=== PATIENT | female | born 1960 | race Caucasian/White ===

== ENCOUNTER 2025-01-09 22:21 | Emergency (ER) | payer BC, SELFPAY ==
[2025-01-09 22:26] VITALS: BP 132/80; PULSE 93; RESP 20; TEMP 36.6; O2SAT 95
[2025-01-09 22:38] VITALS: BP 147/77; PULSE 92; RESP 14; O2SAT 96; BMI 25.5
--- NOTE | 2025-01-09 22:41 | PD.EDSYNC ---
ED Syncope RME/HPI General Chief Complaint: Neuro Symptoms/Deficit Stated Complaint: NEAR SYNCOPE,RECTAL BLEED Time Seen by Provider: 01/09/25 22:41 Arrival date/time: 01/09/25 22:21 RME / HPI RME / HPI narrative: This section includes all my notes and documentations, including HPI, PE, and ED course. Stuart Adrian MD HPI: 64yo female with a history of DM, lupus, fibromyalgia BIBA from home presents to the ED for multiple concerns. Patient states she was using the restroom tonight and felt like she was going to pass out.possibly due to having 4 episodes of bright red blood in the toilet. Patient states she's been dealing with hemorrhoids and constipation for the last few weeks.took Dulcolax yesterday. Per EMS, blood sugar en route was 512 (patient has not taken her meds today). Patient denies any abdominal pain, N/V, black stools. No other complaints reported. ROS: All negative except as documented in HPI. Physical Exam: General:? Alert and oriented.? No acute distress.?? Eyes:? Conjunctivae and lids clear.? EOMI.? PERRL. ENT:? No nasal congestion.? Neck:? Supple.? No carotid bruit.? No JVD.?? Heart:? RRR.? Lungs:? No respiratory distress.? Good air movement.? No rhonchi, wheezing, rales.?? Abdomen:? Soft and nontender.? Normal bowel sounds.? No distension.? No rebound or guarding.?? Back:? No CVA tenderness.?? Legs:? No clubbing, cyanosis, edema.? Skin:? Warm and dry.?? Neuro:? Alert and oriented X 3.? Cranial Nerves II-XII grossly intact.? No peripheral motor deficits. Rectal: External hemorrhoids noted, nonthrombosed. Large amount of bright red blood noted. I reviewed EMS notes. I reviewed all diagnostic test results. My interpretation of the EKG is NSR with nonspecific ST-T changes. My interpretation of the chest x-ray is NAD. My review of the CT head report is unremarkable. My review of the CT chest abdomen pelvis report is: - Thickening of the anorectal wall, inflammatory versus neoplastic. - Fecal loading throughout the colon. - Mild bilateral lung consolidations. Blood tests remarkable for WBC 12.4, Glucose 586, A1C >14.0. At this point, diagnoses include pneumonia and severe constipation. Treatment here included NS, Insulin, Zofran, and Azithromycin. Significant improvement noted. Recommended outpatient management. Based on my best medical judgment, made decision no further evaluation or treatment indicated at this time. Patient understands and agrees to the discharge instructions customized and printed, see below. Discharge instructions from Dr. Adrian: --After extensive evaluation, there is no life-threatening condition. Such as stroke or brain tumor or heart attack. --And your red blood cell count is normal, meaning we didn't lose too much blood. Transfusion is definitely not indicated. --But you have pneumonia and severe constipation which ruptured tiny blood vessels which caused the rectal bleeding. --No physical exertion for 3 days to help rest the lungs. ?No smoking or exposure to smoking or pets or dust or cold or humidity. --Zithromax to kill the germs causing the pneumonia. --Prednisone to help decrease the swelling in the airways. --Albuterol 2 puffs every 4-6 hours as needed for cough or shortness of breath. ?Take Senokot S (not plain Senokot, OTC so prescription not needed), four pills, at bedtime as needed. And milk of magnesia as prescribed. May take a few days but this will help clear out your bowels. ?To help current constipation and prevent future constipation, increase oral fluid because dehydration cause severe constipation. Maintain clear urine. If dark or yellow, increase oral fluid. ?And every day, increase fresh fruits and fresh vegetables and physical exercise. ?See a private doctor on 01/12/2025 for recheck and further care. Ask to review all test results and official radiology reports, to make sure you receive all necessary follow-ups and monitoring. To make sure there is no serious underlying abdominal condition, ask to help you get more care not available here in the ER. Such as EGD or scoping of your stomach, colonoscopy or scoping the colon, and a referral to see a director of [facility]. To make sure there is no serious underlying heart condition, ask to help you get more tests for your heart that cannot be done here in the ER. Such as Holter Monitor (cardiac monitoring at home from a day to even a month), heart stress test (on treadmill or with medication), echocardiogram (imaging of your heart structures), heart catherization (checking for blockages in your heart arteries), and a referral to see a [employer] Person. ?Seek immediate medical care with worsening or with any concerns. Staurt Adrian MD Related Data Home Medications ?Medication ?Instructions ?Recorded ?Confirmed Fluticasone/Salmeterol DISKUS * 1 puff inhalation BID #0 puffs 10/17/14 01/12/19 (ADVAIR DISKUS 250/50 *) folic acid 1 mg tablet 1 mg PO QDAY #0 tabs 10/17/14 01/12/19 guaifenesin 600 mg tablet, 600 mg PO Q12HR ##0 10/17/14 01/12/19 extended release 12 hr (Mucinex) hydroxychloroquine 200 mg tablet 400 mg PO QDAY #0 tabs 10/17/14 01/12/19 (Plaquenil) insulin detemir U-100 100 unit/mL 60 unit subcut BID #0 vials 10/17/14 01/12/19 subcutaneous solution (Levemir U-100 Insulin) insulin lispro 100 unit/mL 40 unit subcut TID #0 vials 10/17/14 01/12/19 subcutaneous solution (Humalog U-100 Insulin) lisinopril 20 mg tablet 20 mg PO QDAY #0 tabs 10/17/14 01/12/19 methotrexate sodium 5 mg tablet 12.5 mg PO Q7D #0 tabs 10/17/14 01/12/19 (Trexall) omeprazole 20 mg capsule,delayed 20 mg PO QDAY ##0 10/17/14 01/12/19 release (Prilosec) sertraline 100 mg tablet (Zoloft) 100 mg PO QDAY #0 tabs 10/17/14 01/12/19 nebivolol 5 mg tablet (Bystolic) 5 mg PO QDAY High Blood Pressure 05/22/15 01/12/19 #0 tabs dapagliflozin propanediol 10 mg 10 mg PO QDAY #0 tabs 10/01/16 01/12/19 tablet (Farxiga) montelukast 10 mg tablet 10 mg PO HS #0 tabs 04/01/17 01/12/19 (Singulair) Previous Rx's ?Medication ?Instructions ?Recorded albuterol sulfate 90 mcg/actuation 2 puff inhalation Q6H PRN 01/10/25 aerosol inhaler shortness of breath or wheezing #8.5 grams azithromycin 500 mg tablet 500 mg PO QDAY 3 days #3 tabs 01/10/25 (Zithromax TRI-ASHLEY) magnesium hydroxide 2,400 mg/10 mL 30 ml PO QDAY PRN constipation #60 01/10/25 oral suspension (Milk Of Magnesia mL Concentrated) prednisone 50 mg tablet 50 mg PO QDAY #3 tabs 01/10/25 sennosides 8.6 mg-docusate sodium 4 tab-cap (4 x 8.6-50 mg) PO QDAY 01/10/25 50 mg tablet (Senokot-S) PRN constipation #20 tabs Allergies Allergy/AdvReac Type Severity Reaction Status Date / Time exenatide Allergy Severe Nausea/Vomi Verified 01/12/19 13:14 tiing Penicillins Allergy Severe SOB Verified 01/12/19 13:14 meperidine HCl Allergy Intermediate SWELLING Verified 01/12/19 13:14 AND RASH metformin Allergy Intermediate Nausea/Vomi Verified 01/12/19 13:14 tiing Review of Systems Review of Systems Systems Reviewed: All systems reviewed, normal except as documented Past Medical History Past Medical History CARDIAC: Negative Congestive Heart Failure RESPIRATORY: Negative Chronic Obstructive Pulmonary Disease (COPD) GENITOURINARY: Negative Renal Disease ENDOCRINE: Positive Diabetes Mellitus Type 2; Negative Diabetes Mellitus Type 1 OTHER HISTORY: Negative Blood Transfusions Social History SMOKING STATUS: Never smoker ED Exam Narrative Physical exam: As noted in HPI. Course Quality Measures none Orders Category Date Time Status Bedside Blood Glucose NOW Care 01/09/25 23:10 Completed [employer] Q4H START 00 Care 01/09/25 22:37 Completed EKG (ED ONLY) *Do not use* NOW Care 01/09/25 22:49 Completed Glucose [Bedside Blood Glucose] NOW Care 01/10/25 00:34 Completed Saline [Insert IV] NOW Care 01/09/25 22:48 Completed Straight [In and Out Catheter] X1 Care 01/09/25 22:[address] chest abdomen pelvis wo Stat Exams 01/09/25 22:[address] head/brain wo con Stat Exams 01/09/25 22:49 Completed EKG (ED Only) Stat Exams 01/09/25 22:49 Ordered XR chest 1V portable Stat Exams 01/09/25 22:49 Completed Alcohol, Blood Medical Stat Lab 01/09/25 22:50 Completed Amylase Stat Lab 01/09/25 22:50 Completed BNP [B-Type Natriuretic Peptide] Stat Lab 01/09/25 22:50 Completed Beta Hydroxybutyrate Stat Lab 01/09/25 22:50 Completed Bilirubin,Direct Stat Lab 01/09/25 22:50 Completed CBC Stat Lab 01/09/25 22:50 Completed CMP [Comprehensive Metabolic Panel] Stat Lab 01/09/25 22:50 Completed Free T4 (Free Thyroxine) Stat Lab 01/09/25 22:50 Completed Hemoglobin A1C [Glycohemoglobin w (eAG)] Stat Lab 01/09/25 22:50 Completed Lipase Stat Lab 01/09/25 22:50 Completed Magnesium Stat Lab 01/09/25 22:50 Completed PT [Prothrombin Time with INR] Stat Lab 01/09/25 23:06 Completed PTT [Partial Thromboplastin Time] Stat Lab 01/09/25 23:06 Completed TSH [Thyroid Stimulating Hormone] Stat Lab 01/09/25 22:50 Completed Troponin I Stat Lab 01/09/25 22:50 Completed Type and Screen Stat Lab 01/09/25 23:06 Completed UA, C/S IF [Urinalysis, C/S if Indicated] Stat Lab 01/10/25 00:57 Completed VBG [Venous Blood Gas] Stat Lab 01/09/25 22:50 Completed Azithromycin Po [Zithromax PO] Med 01/10/25 02:17 Discontinued 500 mg PO X1 ONE Insulin Regular Med 01/09/25 22:48 Discontinued 10 unit IV X1 ONE Insulin Regular Med 01/10/25 00:49 Discontinued 10 unit IV X1 ONE Ondansetron Inj [Zofran Inj] Med 01/09/25 22:48 Discontinued 4 mg IVP X1 ONE Sodium Chloride 0.9% 1000 ml [Ns] 1,000 ml Med 01/09/25 22:48 Discontinued IV 999 mls/hr Vital Signs Vital signs: Vital Signs Temperature 97.8 F 01/09/25 22:26 Pulse Rate 93 01/09/25 22:26 Respiratory Rate 20 01/09/25 22:26 Blood Pressure 132/80 H 01/09/25 22:26 Pulse Oximetry (%) 95 01/09/25 22:26 Oxygen Delivery Method Room Air 01/09/25 22:26 Syncope MDM Narrative MDM Narrative:: Scribe Attestation: 01/09/25 - Val Corbin, melchor scribing for and in the presence of Dr. Adrian. 64yo female with a history of DM, lupus, fibromyalgia BIBA from home presents to the ED for multiple concerns. Patient states she was using the restroom tonight and felt like she was going to pass out.possibly due to having 4 episodes of bright red blood in the toilet. Patient states she's been dealing with hemorrhoids and constipation for the last few weeks.took Dulcolax yesterday. Per EMS, blood sugar en route was 512 (patient has not taken her meds today). Patient denies any abdominal pain, N/V, black stools. No other complaints reported. Patient data External records reviewed:: [facility] previous records (Per chart review, patient was seen here on 08/14/18 for acute dehydration.) Clinical information provided by:: patient and EMS Social determinants that could affect healthcare access:: none Patient has the following chronic illnesses:: DM, lupus, fibromyalgia How is presenting disease/condition affected by chronic disease/condition?: uneffected by Evaluation data The following diagnostics were reviewed and interpreted by me:: lab results, radiology exam(s) and EKG tracing(s) (My interpretation of the EKG is: Sinus rhythm (88 bpm) with nonspecific ST-T changes. Stuart Adrian MD) Lab and/or radiology exams considered but not ordered:: none Interpretation Summary: I reviewed all diagnostic test results. My interpretation of the EKG is NSR with nonspecific ST-T changes. My interpretation of the chest x-ray is NAD. My review of the CT head report is unremarkable. My review of the CT chest abdomen pelvis report is: - Thickening of the anorectal wall, inflammatory versus neoplastic. - Fecal loading throughout the colon. - Mild bilateral lung consolidations. Blood tests remarkable for WBC 12.4, Glucose 586, A1C >14.0. Medications / Prescriptions Medications or Prescriptions considered but not ordered:: none Medication administrations:: Medication Administration History Discontinued Medications Azithromycin (Azithromycin 250 Mg Tablet) 500 mg PO X1 ONE Stop: 01/10/25 02:18 Last Admin: 01/10/25 02:36 Dose: 500 mg Documented By: CB Sodium Chloride (Ns) 1,000 mls @ 999 mls/hr IV .Q1H1M ONE Stop: 01/09/25 23:48 Last Infusion: 01/10/25 00:18 Dose: Infused Documented By: Admin: 01/09/25 23:10 Dose: 999 mls/hr Documented By: NEDRA Insulin Human Regular (Insulin Hum Regular 1 Unit/0.01 Ml (Per Unit)) 10 unit IV X1 ONE Stop: 01/09/25 22:49 Last Admin: 01/09/25 23:12 Dose: 10 unit Documented By: NEDRA Co-signed By: MADI Insulin Human Regular (Insulin Hum Regular 1 Unit/0.01 Ml (Per Unit)) 10 unit IV X1 ONE Stop: 01/10/25 00:50 Last Admin: 01/10/25 01:12 Dose: 10 unit Documented By: NEDRA Co-signed By: MADI Ondansetron HCl (Ondansetron Inj 2 Mg/Ml Inj 2 Ml) 4 mg IVP X1 ONE; Protocol Stop: 01/09/25 22:49 Last Admin: 01/09/25 23:11 Dose: 4 mg Documented By: NEDRA NS, Insulin, Zofran, Azithromycin Consultations Consultation(s) initiated? (list below): No Diagnosis Syncope Differential Diagnosis: syncope due to orthostatic hypotension, vasovagal syncope, complete atrioventricular block, subarachnoid hemorrhage, pulmonary embolism and dehydration Most likely diagnosis given after review of the tests above:: Pneumonia, Constipation Admission Indicated Admission indicated?: not indicated Explain why admission is indicated or not indicated:: With no severe condition needing emergent intervention, there was no indication for admission. Admission Request Was there a request for admission?: No Disposition Plan Disposition Plan: Discharge Discharge Attestation Discharge Attestation: The patient and all family members were given an opportunity to ask questions and understood the discharge instructions. Discharge instructions specifically effects, indications for sooner follow up or return to the emergency department, and the expected course of current diagnosis. Patient condition: Stable Discharge Plan Plan Patient Disposition: HOME (Self Care) Prescriptions/Referrals Prescriptions/Med Rec: New sennosides-docusate sodium [Senokot-S] 8.6-50 mg tablet 4 tab-cap PO QDAY PRN (Reason: constipation) Qty: 20 0RF prednisone 50 mg tablet 50 mg PO QDAY Qty: 3 0RF albuterol sulfate 90 mcg/actuation HFA aerosol inhaler 2 puff inhalation Q6H PRN (Reason: shortness of breath or wheezing) Qty: 8.5 0RF azithromycin [Zithromax TRI-ASHLEY] 500 mg tablet 500 mg PO QDAY 3 Days Qty: 3 0RF magnesium hydroxide [Milk Of Magnesia Concentrated] 2,400 mg/10 mL suspension 30 ml PO QDAY PRN (Reason: constipation) Qty: 60 0RF No Action sertraline [Zoloft] 100 MG tablet 100 mg PO QDAY Qty: 0 methotrexate sodium [Trexall] 5 MG tablet 12.5 mg PO Q7D Qty: 0 lisinopril 20 MG tablet 20 mg PO QDAY Qty: 0 omeprazole [Prilosec] 20 MG capsule,delayed release(DR/EC) 20 mg PO QDAY Qty: 0 Patient Comments: TO SUPPRESS GASTRIC ACID SECRETIONS folic acid 1 MG tablet 1 mg PO QDAY Qty: 0 insulin lispro [Humalog U-100 Insulin] 100 U/ML solution 40 unit Sub-Q TID Qty: 0 hydroxychloroquine [Plaquenil] 200 MG tablet 400 mg PO QDAY Qty: 0 insulin detemir U-100 [Levemir U-100 Insulin] 100 U/ML solution 60 unit Sub-Q BID Qty: 0 guaifenesin [Mucinex] 600 MG tablet extended release 12hr 600 mg PO Q12HR Qty: 0 Fluticasone/Salmeterol DISKUS * (ADVAIR DISKUS 250/50 *) 1 DISK/DEV DISK.W.DEV 1 puff Inhalation BID Qty: 0 nebivolol [Bystolic] 5 MG tablet 5 mg PO QDAY Qty: 0 dapagliflozin propanediol [Farxiga] 10 MG tablet 10 mg PO QDAY Qty: 0 montelukast [Singulair] 10 MG tablet 10 mg PO HS Qty: 0 Referrals: Ирина Gore MD [Primary Care Provider] - In 1 week Problem List Clinical Impression: Pneumonia, Constipation Patient/Caregiver Discharge Instructions Discharge Activity: activity as tolerated Education Materials: ED Constipation (Adult), ED Pneumonia (Adult) Additional Instructions: Discharge instructions from Dr. Adrian: --After extensive evaluation, there is no life-threatening condition. Such as stroke or brain tumor or heart attack. --And your red blood cell count is normal, meaning we didn't lose too much blood. Transfusion is definitely not indicated. --But you have pneumonia and severe constipation which ruptured tiny blood vessels which caused the rectal bleeding. --No physical exertion for 3 days to help rest the lungs. ?No smoking or exposure to smoking or pets or dust or cold or humidity. --Zithromax to kill the germs causing the pneumonia. --Prednisone to help decrease the swelling in the airways. --Albuterol 2 puffs every 4-6 hours as needed for cough or shortness of breath. ?Take Senokot S (not plain Senokot, OTC so prescription not needed), four pills, at bedtime as needed. And milk of magnesia as prescribed.? May take a few days but this will help clear out your bowels. ?To help current constipation and prevent future constipation, increase oral fluid because dehydration cause severe constipation.? Maintain clear urine.? If dark or yellow, increase oral fluid. ?And every day, increase fresh fruits and fresh vegetables and physical exercise. ?See a private doctor on 01/12/2025 for recheck and further care. Ask to review all test results and official radiology reports, to make sure you receive all necessary follow-ups and monitoring. To make sure there is no serious underlying abdominal condition, ask to help you get more care not available here in the ER.? Such as EGD or scoping of your stomach, colonoscopy or scoping the colon, and a referral to see a director of [facility]. To make sure there is no serious underlying heart condition, ask to help you get more tests for your heart that cannot be done here in the ER. Such as Holter Monitor (cardiac monitoring at home from a day to even a month), heart stress test (on treadmill or with medication), echocardiogram (imaging of your heart structures), heart catherization (checking for blockages in your heart arteries), and a referral to see a [employer] Saddle Rep[employer] Person. ?Seek immediate medical care with worsening or with any concerns. Print Language: Syriac Stand Alone Forms: [employer] Award Info., Patient Portal Info Letter
--- NOTE | 2025-01-09 22:49 | XR_ITS ---
Examination: AP chest single view TECHNIQUE: AP portable upright chest signal view Date and time: 01/09/2025 at 11:14 PM Comparison September 15, 2018 INDICATIONS: Shortness of breath today FINDINGS: Normal heart size. No pneumonia or pulmonary edema. Moderate osteopenia. IMPRESSION: No active disease
--- NOTE | 2025-01-09 22:49 | XR_ITS ---
Examination: CT chest, without intravenous contrast. CT abdomen, without intravenous contrast. CT pelvis, without intravenous contrast. 2-D sagittal and coronal reconstructions. 3-D reconstructions. Date and time of exam:January 09, 2025 2343 hours INDICATIONS: Rectal bleeding chest pain and shortness of breath syncopal episode today CTDI vol (mgy) 15.3 DLP (MGycm)1114 Technique: Multiple CT images, 3.0 mm slice thickness, obtained chest, abdomen, pelvis, with the high-resolution 64 slice scanner.. Sagittal and coronal 2-D reconstructions are obtained. 3-D reconstructions Low dose protocols were performed. One or more of the following dose reduction techniques were used; automated exposure control, adjustment of the mA and/or KV according to patient size, use of iterative reconstruction technique. Findings: No thoracic aortic aneurysmal dilatation No mediastinal lymphadenopathy. No pneumonia or pulmonary edema or pleural disease Hepatomegaly 24 cm Absent gallbladder No pancreatic mass Moderate renal parenchymal scar formation No hydronephrosis Aorta normal size No pericecal inflammatory change Abundant stool throughout the colon Abundant stool in the rectum with rectal wall thickening Minimal thickening of urinary bladder wall Prominent osteopenia IMPRESSION: Abundant stool throughout the colon including rectum Rectal wall thickening, differential would include proctitis, other etiologies including early rectal tumor not excluded. Recommend direct inspection
--- NOTE | 2025-01-09 22:49 | XR_ITS ---
Examination: CT brain head without contrast. 2-D sagittal coronal reconstructions Date and time of exam:January 09, 2025 at 11:40 PM INDICATIONS: Syncopal episode today CTDI: vol (mGy):51.8 DLP: (mGycm):1032 Technique: Multiple CT axial sections of the brain have been obtained, 5 mm slice thickness. Contrast has not been administered. 2-D sagittal, coronal reconstructions have been obtained Low dose protocols were performed. One or more of the following dose reduction techniques were used; automated exposure control, adjustment of the mA and/or KV according to patient size, use of iterative reconstruction technique. Findings: No significant ventricular enlargement. Intra-axial or extra-axial hemorrhage density is not seen. No mass effect or midline shift Basal cisterns are not remarkable. Fourth ventricle is midline. Cranial vault intact. Impression: Negative for acute hemorrhage, mass effect or midline shift
[2025-01-09 23:01] LABS: Base Excess, Venous -1 (-3-3); Basophils # (Auto) 0.1 Thou/mm3 (0.0-0.2); Basophils % (Auto) 1 % (0-2.5); Eosinophils # (Auto) 0.2 Thou/mm3 (0.0-0.5); Eosinophils % (Auto) 2 % (0-10); Hematocrit 38.3 % (36.0-46.0); Hemoglobin 13.1 g/dL (12.0-16.0); Immature Granulocytes % (Auto) 1 % (0-0); Immature Granulocytes Auto 0.07 Thou/mm3 (0.00-0.00); Lymphocytes # (Auto) 1.5 Thou/mm3 (1.0-4.8); Lymphocytes % (Auto) 12 % (10-50); Mean Corpuscular HGB Conc 34.2 g/dl (31.0-37.0); Mean Corpuscular Hemoglobin 27.6 pg (25.0-35.0); Mean Corpuscular Volume 81 fL (80-100); Monocytes # (Auto) 0.6 Thou/mm3 (0.0-0.8); Monocytes % (Auto) 5 % (0-12); Neutrophils % (Auto) 81 % (37-80); Nucleated Red Blood Cell % 0 /100 WBC (0); O2 Saturation, Venous 90 % (96-97); PCO2, Venous 38 mmHg (36-56); PO2, Venous 104 mmHg (15-58); Platelet Count 244 Thou/mm3 (140-440); RDW Standard Deviation 38.2 fL (36.4-46.3); Red Blood Count 4.75 Miln/mm3 (4.00-5.20); White Blood Count 12.4 Thou/mm3 (3.6-11.0)
[2025-01-09] MEDS: SODIUM CHLORIDE 0.9% 1000 ML 1,000 ML 999 ML IV (23:10)
[2025-01-09] MEDS: ONDANSETRON INJ 2 MG/ML INJ 2 ML 4 MG IVP (23:11)
[2025-01-09] MEDS: INSULIN HUM REGULAR 1 UNIT/0.01 ML (PER UNIT) 10 UNIT IV (23:12)
[2025-01-09 23:20] LABS: Glucose Estimated Average 355 mg/dL (80-131); Hemoglobin A1C > 14.0 % Hgb (4.8-6.0)
[2025-01-09 23:25] LABS: B-Type Natriuretic Peptide 35 pg/mL (0-100)
[2025-01-09 23:28] LABS: Prothrombin Time 10.8 Seconds (9.0-12.2)
[2025-01-09 23:32] LABS: Alanine Aminotransferase 20 U/L (10-49); Albumin, Serum 3.8 gm/dL (3.4-4.8); Albumin/Globulin Ratio 2.2 (1.2-2.2); Alcohol, Blood Medical < 3.0 mg/dL (0-10.0); Alkaline Phosphatase 114 U/L (46-116); Amylase 29 U/L (30-118); Anion Gap 11 (7-16); Aspartate Amino Transferase 18 U/L (0-34); BUN/Creatinine Ratio 10 Ratio (12-20); Bilirubin,Direct 0.1 mg/dL (0.0-0.3); Bilirubin,Total 0.4 mg/dL (0.3-1.2); Blood Urea Nitrogen 9 mg/dL (9-23); Calcium 8.5 mg/dL (8.3-10.6); Calcium (Corrected) 8.7 mg/dL (8.5-10.1); Carbon Dioxide 22.1 mMol/L (20.0-31.0); Chloride 99 mMol/L (98-107); Creatinine (Component) 0.9 mg/dL (0.6-1.3); Estimated Creatinine Clearance 67.7 mL/min (>60); Free T4 (Free Thyroxine) 1.19 ng/dL (0.89-1.76); Globulin 1.7 gm/dL (2.3-3.5); Lipase 47 U/L (12-53); Magnesium 1.8 mg/dL (1.6-2.6); Osmolality,Calculated 290 (275-295); Potassium 4.4 mMol/L (3.4-5.1); Sodium 132 mMol/L (136-145); Thyroid Stimulating Hormone 1.84 uIU/mL (0.55-4.78); Total Protein 5.5 gm/dL (5.7-8.2); Troponin I < 0.002 ng/mL (0.0-0.045); eGFR > 60 See Note
[2025-01-09 23:35] LABS: Glucose 586 mg/dL (74-106)
[2025-01-09 23:36] LABS: Beta Hydroxybutyrate 0.4 mmol/L (<0.6)
[2025-01-10 00:49] VITALS: BP 140/78; PULSE 91; RESP 20; TEMP 36.7; O2SAT 95
[2025-01-10 01:04] LABS: Collection Type, Urine Clean Catch
[2025-01-10] MEDS: INSULIN HUM REGULAR 1 UNIT/0.01 ML (PER UNIT) 10 UNIT IV (01:12)
[2025-01-10 01:14] LABS: Bilirubin,Urine Negative (Negative); Blood,Urine 3+ (Negative); Clarity,Urine Clear (Clear/Hazy); Color,Urine Lt-Yellow (Lt Yel-Yel); Culture Indicated,Urine Not Indicated; Glucose, Urine 4+ (Negative); Ketones,Urine Negative (Negative); Leukocyte Esterase,Urine Negative (Negative); Nitrite,Urine Negative (Negative); Protein,Urine Negative (Neg - Trace); RBC,Urine 2 /hpf (0-3); Specific Gravity,Urine 1.034 (1.001-1.035); Squamous Epithelial Cell,Urine < 1 /hpf (0-5); Urobilinogen,Urine Negative mg/dL (0.0-1.0); WBC,Urine 6 /hpf (0-5)
[2025-01-10 02:15] VITALS: BP 143/72; PULSE 86; RESP 20; TEMP 36.7; O2SAT 94
[2025-01-10] MEDS: AZITHROMYCIN 250 MG TABLET 500 MG PO (02:36)
[2025-01-10 02:49] VITALS: BP 136/76; PULSE 80; RESP 20; TEMP 36.8; O2SAT 95
== END 2025-01-10 02:51 | disposition home or self-care (01) ==
PROVIDERS: Emergency Provider Emergency Medicine; PCP Family Medicine
DX: J18.9 Pneumonia, unspecified organism (principal); K59.00 Constipation, unspecified; R55 Syncope and collapse; K62.89 Other specified diseases of anus and rectum
CPT/HCPCS: 36415; 70450; 71045; 71250; 74176; 80053; 80320; 81001; 82010; 82150; 82248; 82803; 83036; 83690; 83735; 83880; 84439; 84443; 84484; 85025; 85610; 85730; 86850; 86900; 86901; 93005; 96361; 96374; 99284; J1815; J2405; J7030; A9270; G0480